=== PATIENT | male | born 1930 | race Hispanic/Latino ===

== ENCOUNTER 2017-01-29 13:01 | Inpatient (IN) | payer MEDICARE, OTHER ==
[2017-01-29 14:06] LABS: Basophils % (Auto) 0.5 % (0.0-1.8); Eosinophils % (Auto) 3.1 % (0.0-4.3); Hematocrit 35.6 % (35.5-45.6); Mean Corpuscular HGB Conc 34 % (32-34); Mean Corpuscular Hemoglobin 33 pg (28-32); Mean Corpuscular Volume 98 fl (84-94); Platelet Count 154 K/mm3 (140-440); Red Blood Count 3.63 M/mm3 (3.65-5.03); Red Cell Distribution Width 14.2 % (13.2-15.2); White Blood Count 5.3 K/mm3 (4.5-11.0)
[2017-01-29 14:26] LABS: Anion Gap 16 mmol/L; BUN/Creatinine Ratio 30; Blood Urea Nitrogen 24 mg/dL (9-20); Calcium 8.5 mg/dL (8.4-10.2); Carbon Dioxide 24 mmol/L (22-30); Chloride 101.4 mmol/L (98-107); Glucose 125 mg/dL (75-100); Potassium 4.2 mmol/L (3.6-5.0); Sodium 137 mmol/L (137-145)
--- NOTE | 2017-01-29 14:54 | Emergency Department Report ---
HPI - General Chief Complaint: Syncope Time Seen by Provider: 01/29/17 14:32 - HPI HPI: Room 17 The patient is an 86-year-old male presenting with a chief complaint of dizziness. The patient states he was at [employer] standing in line when he began to feel dizzy. Other churchgoers assisted the patient in sitting down. The patient states he drank some water but 10 minutes later he had no improvement. The patient states his vision was blurry and subsequently 911 was called. The patient states while he was being transported to the hospital he had an episode of nausea and vomiting. The patient currently denies any complaints stating he feels better. Patient denied ever having preceding chest pain, shortness of breath, palpitations or headache. Patient denies preceding diarrhea or fever. Patient denies ever losing consciousness. Patient does admit to URI symptoms to 3 nights ago which included diaphoresis and a "raspy" feeling in his throat, nasal congestion and a headache. Location: Head, see above Duration: [See above] Quality: Dizziness Severity: Moderate Modifying factors: [see above] Context: [see above] Mode of transportation: [not driving] ED Past Medical Hx - Past Medical History Previous Medical History?: Yes Hx of Cancer: Yes (prostate CA, colon CA, leukemia) Additional medical history: history prostate cancer status post radiation, hx colon cancer status post partial colectomy, leukemia, high cholesterol - Surgical History Past Surgical History?: Yes Additional Surgical History: colon surgery 12/04 - Family History Family history: no significant - Social History Smoking Status: Former Smoker (none since 1958) Substance Use Type: Alcohol (2-3 drinks per week) - Medications Home Medications: Home Medications Medication Instructions Recorded Confirmed Last Taken Type Amoxicillin/K Clav Tab [Augmentin 1 tab PO BID #20 tablet 01/20/13 01/29/1308/05 21:00 Rx 875MG] Aspirin [Baby Aspirin] 81 mg PO ONCE 01/20/13 01/29/13 01/28/13 21:00 History Gabapentin [Gralise] 300 mg PO BID 01/20/13 01/29/13 01/28/13 21:00 History HYDROcodone/APAP 5-325 [[place] 1 each PO Q6HR PRN #12 tablet 01/20/13 01/29/13 21:00 Rx 5/325 mg] Mometasone Furoate [Nasonex] 2 spray NS QDAY 01/20/13 01/29/13 01/28/13 21:00 History Tamsulosin [Flomax] 0.4 mg PO QDAY 01/20/13 01/29/13 01/28/13 21:00 History ED Review of Systems ROS: Stated complaint: CHEST PAIN Other details as noted in HPI Constitutional: denies: fever Eyes: vision change ENT: throat pain ("raspy throat") Respiratory: denies: shortness of breath Cardiovascular: denies: chest pain, palpitations Gastrointestinal: nausea, vomiting. denies: diarrhea Genitourinary: denies: dysuria Musculoskeletal: denies: back pain Neurological: headache, other (dizziness) Physical Exam - Physical Exam Vital Signs: Vital Signs 01/29/17 01/29/17 01/29/17 13:17 13:29 13:30 Temperature 97.5 F L Pulse Rate 61 61 59 L Respiratory 14 20 15 Rate Blood Pressure 162/69 162/78 O2 Sat by Pulse 95 96 Oximetry 01/29/17 01/29/17 01/29/17 13:37 14:00 14:30 Temperature Pulse Rate 61 61 63 Respiratory 18 19 Rate Blood Pressure 157/70 164/76 O2 Sat by Pulse 99 98 Oximetry Physical Exam: GENERAL: The patient is well-developed well-nourished male lying on stretcher not appearing to be in acute distress. [] HEENT: Normocephalic. Atraumatic. Extraocular motions are intact. Patient has moist mucous membranes. NECK: Supple. Trachea midline CHEST/LUNGS: Clear to auscultation. There is no respiratory distress noted. HEART/CARDIOVASCULAR: Regular. There is no tachycardia. There is no gallop rub or murmur. ABDOMEN: Abdomen is soft, nontender. Patient has normal bowel sounds. There is no abdominal distention. SKIN: There is no rash. There is no edema. There is no diaphoresis. NEURO: The patient is awake, alert, and oriented. The patient is cooperative. The patient has no focal neurologic deficits. The patient has normal speech. Cranial nerves II through XII grossly intact, no drift monitor technician equal bilaterally. Normal sensation throughout MUSCULOSKELETAL: There is no evidence of acute injury. ED Course Vital Signs 01/29/17 01/29/17 01/29/17 13:17 13:29 13:30 Temperature 97.5 F L Pulse Rate 61 61 59 L Respiratory 14 20 15 Rate Blood Pressure 162/69 162/78 O2 Sat by Pulse 95 96 Oximetry 01/29/17 01/29/17 01/29/17 13:37 14:00 14:30 Temperature Pulse Rate 61 61 63 Respiratory 18 19 Rate Blood Pressure 157/70 164/76 O2 Sat by Pulse 99 98 Oximetry ED Medical Decision Making - Lab Data Result diagrams: 01/29/17 13:53 01/29/17 13:51 - EKG Data -: EKG Interpreted by [place] EKG shows normal: sinus rhythm Rate: normal - EKG Data When compared to previous EKG there are: previous EKG unavailable Interpretation: nonspecific ST-T wave faith - Radiology Data Radiology results: report reviewed (CT head), image reviewed (CT head, CT chest) FINAL REPORT PROCEDURE: CT HEAD/BRAIN WO CON TECHNIQUE: Computerized tomography of the head was performed without contrast material. HISTORY: dizziness, near syncope COMPARISON: None FINDINGS: Moderate cerebral with lesser central and cerebellar volume loss is present. Mild to moderate symmetrical deep white matter microvascular ischemic change is present. Small vessel disease involves the central ryann as well. There is no CT evident acute infarction. There is no intra or extra-axial hemorrhage. There is no mass effect. The skull base and calvarium are intact. The partially visualized paranasal sinuses, mastoid air cells and middle ears are clear. Septal thickening without lillian ethmoidal sinusitis is present. IMPRESSION: No CT evident acute intracranial process. Involutional changes and small vessel disease. Transcribed By: RAND Dictated By: ADAMA TONG MD Electronically Authenticated By: ADAMA TONG MD Signed Date/Time: 01/29/171219 DD/ 19 TD/TT: 01/29/171219 FINAL REPORT PROCEDURE: CT HEAD/BRAIN WO CON TECHNIQUE: Computerized tomography of the head was performed without contrast material. HISTORY: dizziness, near syncope COMPARISON: None FINDINGS: Moderate cerebral with lesser central and cerebellar volume loss is present. Mild to moderate symmetrical deep white matter microvascular ischemic change is present. Small vessel disease involves the central ryann as well. There is no CT evident acute infarction. There is no intra or extra-axial hemorrhage. There is no mass effect. The skull base and calvarium are intact. The partially visualized paranasal sinuses, mastoid air cells and middle ears are clear. Septal thickening without lillian ethmoidal sinusitis is present. IMPRESSION: No CT evident acute intracranial process. Involutional changes and small vessel disease. Transcribed By: RAND Dictated By: ADAMA TONG MD Electronically Authenticated By: ADAMA TONG MD Signed Date/Time: 01/29/171219 DD/ 19 TD/TT: 01/29/171219 - Differential Diagnosis dysrhythmia, PE, ICH, vertigo, UTI Critical care attestation.: If time is entered above; I have spent that time in minutes in the direct care of this critically ill patient, excluding procedure time. ED Disposition Clinical Impression: Near syncope, Dizziness Disposition: OP ADMIT IP TO THIS HOSP Is pt being admited?: Yes Does the pt Need Aspirin: Yes Condition: Stable Time of Disposition: 17:07 (hospitalist notified (Dr Watson))
[2017-01-29 15:34] LABS: Bacteria,Urine 1+ /HPF (Negative); Bilirubin,Urine NEG (Negative); Blood,Urine NEG (Negative); Ketones,Urine NEG (Negative); Leukocyte Esterase,Urine NEG (Negative); Mucus,Urine FEW /HPF; Nitrite,Urine NEG (Negative); Protein,Urine <15 mg/dL mg/dL (Negative); Urobilinogen,Urine < 2.0 mg/dL (<2.0)
--- NOTE | 2017-01-29 16:22 | Cat Scan Report ---
FINAL REPORT PROCEDURE: CT HEAD/BRAIN WO CON TECHNIQUE: Computerized tomography of the head was performed without contrast material. HISTORY: dizziness, near syncope COMPARISON: None FINDINGS: Moderate cerebral with lesser central and cerebellar volume loss is present. Mild to moderate symmetrical deep white matter microvascular ischemic change is present. Small vessel disease involves the central ryann as well. There is no CT evident acute infarction. There is no intra or extra-axial hemorrhage. There is no mass effect. The skull base and calvarium are intact. The partially visualized paranasal sinuses, mastoid air cells and middle ears are clear. Septal thickening without lillian ethmoidal sinusitis is present. IMPRESSION: No CT evident acute intracranial process. Involutional changes and small vessel disease.
--- NOTE | 2017-01-29 16:40 | Cat Scan Report ---
FINAL REPORT PROCEDURE: CT ANGIO CHEST TECHNIQUE: Computerized tomographic angiography of the chest was performed after the IV injection of iodinated nonionic contrast including image processing. The image data was postprocessed using 2-dimensional multiplanar reformatted (MPR) and 3-dimensional (MIP and/or volume rendered) techniques. HISTORY: dizziness, near syncope COMPARISON: None FINDINGS: Heart and pericardium: Heart size normal. Mild coronary artery calcifications. No pericardial effusion. Thoracic aorta: Normal. Pulmonary vasculature: Normal. Lymph nodes: No enlarged thoracic lymph nodes. Lungs: Mild bilateral posterior subsegmental atelectasis worst at the lung bases.. Pleural space: No effusion or pneumothorax. Musculoskeletal structures: No significant abnormality. Upper abdominal structures: Few hepatic cysts, the largest of which is of the lateral segment of the left lobe 2.5 x 2.6 centimeters.. IMPRESSION: Mild coronary artery calcifications. Coronary artery disease risk assessment is recommended. Few hepatic cysts.
[2017-01-29] MEDS ORDERED: ASPIRIN PO ONE (17:07)
--- NOTE | 2017-01-29 17:10 | History and Physical Report ---
History of Present Illness Chief complaint: I nearly passed out, and i could not see History of present illness: 86 YO Male with CaP, Lukemia, Colon Cancer S/P resection, HLD, HIRA on CPAP, presents to ED for evaluation. Pt states that he experienced a sudden onset of dizziness and vision loss today. Pt states that he was at [employer] standing in line to get lunch when he began to feel dizzy and was unable to maintain his posture and that his vision became blurry and he could not see. Other churchgoers assisted the patient in sitting down. Patient states that he drank some water without improvement in symptoms. EMS notified, and patient transported to [facility] for further care and evaluation. Patient denies fever, chills, CP, NVD, shortness of breath, palpitations or headache. Pt seen and evaluated in ED and found to have symptoms suspicious for CVA. Past History Past Medical History: cancer, hyperlipidemia, other (HIRA) Past Surgical History: bowel surgery Social history: . denies: smoking, alcohol abuse, prescription drug abuse, IV drug use Family history: hypertension Medications and Allergies Allergies Allergy/AdvReac Type Severity Reaction Status Date / Time No Known Allergies Allergy Verified 01/29/13 04:37 Home Medications Medication Instructions Recorded Confirmed Last Taken Type Amoxicillin/K Clav Tab [Augmentin 1 tab PO BID #20 tablet 01/20/13 01/29/1308/05 21:00 Rx 875MG] Aspirin [Baby Aspirin] 81 mg PO ONCE 01/20/13 01/29/13 01/28/13 21:00 History Gabapentin [Gralise] 300 mg PO BID 01/20/13 01/29/13 01/28/13 21:00 History HYDROcodone/APAP 5-325 [[place] 1 each PO Q6HR PRN #12 tablet 01/20/13 01/29/13 21:00 Rx 5/325 mg] Mometasone Furoate [Nasonex] 2 spray NS QDAY 01/20/13 01/29/13 01/28/13 21:00 History Tamsulosin [Flomax] 0.4 mg PO QDAY 01/20/13 01/29/13 01/28/13 21:00 History Review of Systems Constitutional: no weight loss, no weight gain, no fever, no chills Ears, nose, mouth and throat: no ear pain, no ear discharge, no tinnitis, no decreased hearing, no nose pain, no nasal congestion, no nasal discharge Cardiovascular: lightheadedness, no chest pain, no orthopnea, no palpitations, no rapid/irregular heart beat, no edema, no syncope, no shortness of breath Respiratory: no cough, no cough with sputum, no excessive sputum, no hemoptysis , no shortness of breath Gastrointestinal: no abdominal pain, no nausea, no vomiting, no diarrhea Genitourinary Male: no hematuria, no flank pain, no discharge, no urinary frequency, no urinary hesitancy Rectal: no pain, no incontinence, no bleeding Musculoskeletal: no neck pain, no shooting arm pain, no arm numbness/tingling, no low back pain Integumentary: no rash, no pruritis, no redness, no sores, no wounds, no jaundice Neurological: weakness, loss of vision, no head injury, no tingling, no seizures , no syncope, no tremors, no convulsions Psychiatric: no anxiety, no memory loss, no change in sleep habits, no sleep disturbances, no insomnia, no hypersomnia, no change in appetite, no change in libido Endocrine: no cold intolerance, no heat intolerance, no polyphagia, no excessive thirst, no polydipsia, no polyuria, no nocturia Hematologic/Lymphatic: no easy bruising, no easy bleeding Allergic/Immunologic: no urticaria, no allergic rhinitis, no wheezing Exam - Constitutional Vitals: Temp Pulse Resp BP Pulse Ox 97.5 F L 64 22 146/69 97 01/29/17 13:29 01/29/17 15:30 01/29/17 15:30 01/29/17 15:30 01/29/17 15:30 General appearance: Present: mild distress - EENT Eyes: Present: PERRL ENT: hearing intact, clear oral mucosa - Neck Neck: Present: supple, normal ROM - Respiratory Respiratory effort: normal Respiratory: bilateral: CTA - Cardiovascular Heart Sounds: Present: S1 & S2. Absent: rub, click - Extremities Extremities: pulses symmetrical, No edema Peripheral Pulses: within normal limits - Abdominal General gastrointestinal: Present: soft, non-tender, non-distended, normal bowel sounds Male genitourinary: Present: normal - Integumentary Integumentary: Present: clear, warm, dry - Musculoskeletal Musculoskeletal: gait normal, strength equal bilaterally - Psychiatric Psychiatric: appropriate mood/affect, intact judgment & insight - Neurologic Neurologic: CNII-XII intact, moves all extremities Results - Labs CBC & Chem 7: 01/29/17 13:53 01/29/17 13:51 Labs: Abnormal lab results 01/29/17 01/29/17 Range/Units 13:51 13:53 RBC 3.63 L (3.65-5.03) M/mm3 MCV 98 H (84-94) fl MCH 33 H (28-32) pg Lymph % (Auto) 9.6 L (13.4-35.0) % [place] % (Auto) 8.9 H (0.0-7.3) % Lymph # 0.5 L (1.2-5.4) K/mm3 Seg Neutrophils % 77.9 H (40.0-70.0) % BUN 24 H (9-20) mg/dL Glucose 125 H (75-100) mg/dL Assessment and Plan - Patient Problems (1) CVA (cerebral vascular accident) Current Visit: Yes Status: Acute Qualifiers: Precerebral and cerebral artery: posterior cerebral artery Laterality of affected vessel: bilateral Plan to address problem: Stroke Protocol: CT head, MRI Brain, MRA Brain, Echo, Carotid Doppler, Neuro checks, Antiplatelet therapy, PT/OT/ Speech therapy, lipid panel, thyroid panel (2) Accelerated hypertension Current Visit: Yes Status: Acute Plan to address problem: monitor BP q shift, permissive hypertension overnight. (3) Diabetes Current Visit: Yes Status: Acute Plan to address problem: ADA diet, inslin, accu check (4) GERD (gastroesophageal reflux disease) Current Visit: Yes Status: Acute Plan to address problem: PPI therapy, (5) DVT prophylaxis Current Visit: Yes Status: Acute
[2017-01-29] MEDS ORDERED: MILK OF MAGNESIA PO PRN (17:13)
[2017-01-29] MEDS ORDERED: TYLENOL PO PRN (17:13)
[2017-01-29] MEDS ORDERED: PHENERGAN PR PRN (17:13)
[2017-01-29] MEDS ORDERED: DULCOLAX PR PRN (17:13)
[2017-01-29] MEDS ORDERED: SODIUM CHLORIDE FLUSH SYRINGE 10 ML IV PRN (17:13)
[2017-01-29] MEDS ORDERED: REGLAN PO PRN (17:13)
[2017-01-29] MEDS ORDERED: ZOFRAN IV PRN (17:13)
[2017-01-29] MEDS ORDERED: PROVENTIL IH PRN (17:13)
[2017-01-29] MEDS ORDERED: NORCO 5/325 PO PRN (17:18)
[2017-01-29 17:29] LABS: Creatine Kinase 70 units/L (55-170); Creatine Kinase MB 2.3 ng/mL (0.0-4.0)
[2017-01-29] MEDS ORDERED: BABY ASPIRIN PO SCH (18:00)
[2017-01-29] MEDS ORDERED: TYLENOL ONE (20:27)
[2017-01-29] MEDS: NEURONTIN PO SCH (21:17)
[2017-01-29] MEDS ORDERED: FLOMAX PO SCH (22:00)
[2017-01-29] MEDS ORDERED: NON-FORMULARY (Gabapentin [Gralise] 300 MG) PO SCH (22:00)
[2017-01-30 06:33] VITALS: BP 131/49
[2017-01-30] MEDS ORDERED: FLONASE NS SCH (10:00)
[2017-01-30] MEDS ORDERED: NON-FORMULARY (Mometasone Furoate [Nasonex] 2 SPRAY) NS SCH (10:00)
--- NOTE | 2017-01-30 10:06 | Magnetic Resonance Report ---
MRA HEAD WITHOUT CONTRAST HISTORY: Stroke. [id number] imaging with MIP reformations of the [place] is submitted. The arteries appear widely patent and free of hemodynamically significant stenosis, aneurysm or dissection. IMPRESSION: Unremarkable MRA head.
--- NOTE | 2017-01-30 10:08 | Magnetic Resonance Report ---
MRI OF THE BRAIN WITHOUT CONTRAST: HISTORY: Stroke PROCEDURE: Multiplanar, multisequence MR imaging of the brain without IV contrast was performed. FINDINGS: Compared to the CT head without contrast dated 01/29/17. Moderate cortical volume loss and nonspecific chronic white matter changes are identified. Otherwise, the brain parenchyma signal intensity and its torres white interface are within normal limits on all sequences. No evidence for acute ischemia, hemorrhage or mass. No chronic infarct or extra-axial fluid collection. The midline structures are central. The basal cisterns are patent. Normal ventricular size. The orbital cavities and sella turcica demonstrate no abnormality. The visualized paranasal sinuses and mastoid air cells are well aerated. IMPRESSION: Volume loss and chronic white matter changes. No acute intracranial process identified.
[2017-01-30] MEDS: NEURONTIN PO SCH (13:56)
--- NOTE | 2017-01-30 15:49 | Discharge Summary ---
Providers - Providers Date of Admission: 01/29/17 17:13 Date of discharge: 01/30/17 Attending physician: MARIA ISABEL KEMP 01/29/17 17:13 Occupational Therapy Evaluate and Treat [CONS] Routine Comment: Reason For Exam: Neuro deficits Physical Therapy Evaluation and Treat [CONS] Routine Comment: Reason For Exam: Neuro deficits Primary care physician: SENIOR QC TECHNICIAN Hospitalization Condition: Stable Hospital course: Patient is a 86 yo man with plethora of co-morbidities who presented with dizziness. no cva Syncope due to autonomic imbalance Accelerated hypertension Dehydration Colon Cancer by history Leukemia by history BPH Disposition: DC-01 TO HOME OR SELFCARE Time spent for discharge: 33 min Core Measure Documentation - Palliative Care Palliative Care/ Comfort Measures: Not Applicable - Core Measures Any of the following diagnoses?: none - VTE Discharge Requirements Deep Vein Thrombosis/Pulmonary Embolism Present on Admission: No Has pt received <5 days of overlap therapy or INR<2.0: No Anticoagulant overlap therapy prescribed at discharge: No Contraindication No Overlap Therapy order at DC: Not Indicated Exam - Physical Exam Narrative exam: GEN: WDWN, NAD, AWAKE, ALERT, ORIENTATED 3 HEENT: NCAT, EOMI, PERRL, OP Clear NECK: supple, no adenopathy, no thyromegaly, no JVD CVS/HEART: RRR, NORMAL S1S2, NO JVD, pulses present bilaterally CHEST/LUNGS: CTA B, Symmetrical chest expansion, good air entry bilaterally GI/Abdomen: soft, NTND, good bowel sounds, no guarding or rebound /Bladder: no suprapubic tenderness, no CVA or paraspinal tenderness EXT/Skin: no c/c/e, no obvious rash MSK: FROM x 4 Neuro: CN 2-12 grossly intact, no new focal deficits Psych: calm - Constitutional Vitals: Temp Pulse Resp BP Pulse Ox 98.1 F 68 18 131/49 95 01/30/17 04:25 01/30/17 04:25 01/30/17 04:25 01/30/17 04:25 01/30/17 08:01 Plan Activity: no driving until cleared by PCP, other (no strenous activity until cleared by pcp) Diet: low salt, diabetic Special Instructions: record daily BP diary, record blood sugar diary Follow up with: PRIMARY CARE, [Primary Care Provider] - 7 Days
== END 2017-01-30 17:55 | disposition home or self-care (01) | DRG 74 ==
LOC: ED 13:01 → 4A 17:13
PROVIDERS: ADMIT Internal Medicine; ATTEND Internal Medicine
PROC: 5A0935Z Assistance with Respiratory Ventilation, Less than 24 Consecutive Hours (ICD-10-PCS; principal; 2017-01-29)
DX: G90.8 Other disorders of autonomic nervous system (principal); K21.9 Gastro-esophageal reflux disease without esophagitis; I10 Essential (primary) hypertension; E11.9 Type 2 diabetes mellitus without complications; N40.0 Benign prostatic hyperplasia without lower urinary tract symptoms; R55 Syncope and collapse; E86.0 Dehydration; G47.33 Obstructive sleep apnea (adult) (pediatric); Z85.038 Personal history of other malignant neoplasm of large intestine; Z85.46 Personal history of malignant neoplasm of prostate; Z90.49 Acquired absence of other specified parts of digestive tract; Z87.891 Personal history of nicotine dependence; Z82.49 Family history of ischemic heart disease and other diseases of the circulatory system
CPT/HCPCS: 36415; 70450; 70544; 70551; 71275; 80048; 80061; 81001; 82550; 82553; 84439; 84443; 84484; 85025; 93005; 93010; 93306; 93880; 94660; 94760; 99285; Q9967